=== PATIENT | female | born 1990 | race Asian ===

== ENCOUNTER 2018-09-09 17:05 | Emergency (ER) | payer MEDICAID ==
[~2018-09-09] VITALS: Ht 160 cm; Wt 53.6 kg
[2018-09-09 17:12] VITALS: BP 146/99
[2018-09-09] MEDS ORDERED: LORazepam 1MG TABLET ONE (17:54)
[2018-09-09] MEDS ORDERED: LORazepam 1MG TABLET PO ONE (18:00)
== END 2018-09-09 18:08 | disposition home or self-care (01) ==
LOC: ED 17:40
DX: F41.1 Generalized anxiety disorder (principal)
CPT/HCPCS: 99284